=== PATIENT | female | born 1935 | race Caucasian/White ===

== ENCOUNTER → 2018-04-07 14:40 | Outpatient (CLI) | payer MEDICARE, SELFPAY ==
--- NOTE | 2018-04-07 | DI.ECHO.S_ITS ---
[facility] +---------+ : : [address] : [address] : : : : [id number] : : : : Phone: [phone] Echocardiogram Report + + :Name: DANILO SANTIAGO Study Date: 04/07/2018 Height: 67 in : :[facility] Weight: 150 lb : : Gender: Female BSA: 1.8 m2 : :: 1935 Age: 82 yrs BP: 148/52 mmHg: :Reason For Study: Congestive Heart Failure : : Performed By: Heydi Suárez : :Referring: SANTHOSH READ : + + Interpretation Summary 1) Normal left ventricular size, wall motion, and systolic function (EF about 55%). 2) Borderline RV enlargement with normal function. 3) There is mild to moderate aortic regurgitation. 4) Normal pulmonary artery pressures. 5) No prior Echo available for comparison. Procedure: A two-dimensional transthoracic echocardiogram with color flow and Doppler was performed. The study quality was technically adequate. There is no prior echocardiogram noted for this patient. The patient was in normal sinus rhythm during the exam. Left Ventricle: The left ventricle is normal in size. There is normal left ventricular wall thickness. Left ventricular ejection fraction is estimated to be 55 +/- 5%. Left ventricular systolic function is normal. There are no focal wall motion abnormalities. Diastolic parameters suggest a pseudonormalization pattern, consistent with probable elevated filling pressures. Right Ventricle: Borderline right ventricular enlargement. Right ventricular systolic function is borderline reduced. Atria: The left atrium is moderately dilated. Right atrial size is normal. The interatrial septum is intact with no evidence for an atrial septal defect. Mitral Valve: The mitral valve is grossly normal. There is no mitral regurgitation noted. Aortic Valve: The aortic valve is trileaflet. Leaflet mobility is moderately reduced. The aortic valve area is 2.2 centimeters squared by planimetry. There is mild to moderate aortic regurgitation. Tricuspid Valve: The tricuspid valve leaflets are thin and pliable. There is trace tricuspid regurgitation. The right ventricular systolic pressure is estimated to be at least 27 mmHg based on an estimated right atrial pressure of 3 mm Hg. Pulmonic Valve: The pulmonic valve is not well seen, but is grossly normal. There is trace pulmonic regurgitation. Great Vessels: The aortic root is mildly dilated. The ascending aorta is at the upper limits of normal in size. The aortic arch is at the upper limits of normal in size. The IVC is of normal diameter and collapses greater than 50% with a sniff. This suggests a low right atrial pressure of 3 mm Hg. Pericardium/ Pleura There is no pericardial effusion. There is no pleural effusion. MMode/2D Measurements & Calculations LVIDd: 5.4 cm Ao root diam: 3.8 cm LVIDs: 3.7 cm Aortic Jxn: 3.4 cm FS: 31.1 % asc Aorta Diam: 3.9 cm EPSS: 0.51 cm Ao Arch Diam (Prox Trans): 3.4 cm IVSd: 1.1 cm LVPWd: 0.73 cm LV field. diameter/BSA (cm/m^2): 3.0 LV sys. diameter/BSA (cm/m^2): 2.1 LA dimension: 4.1 cm RA long axis: 4.7 cm LA A2 area: 24.5 cm2 RA area: 17.7 cm2 LA A4 area: 22.1 cm2 RA vol: 56.5 ml LA length (vol): 5.1 cm RA : 31.6 ml/m2 LA vol: 89.7 ml IVC diam: 1.2 cm LA vol index: 50.1 ml/m2 RVDd major: 5.6 cm RVD1 (basal): 3.9 cm RVD2 (mid): 2.7 cm ARASH (plan): 2.2 cm2 Doppler Measurements & Calculations Ao V2 max: 171.1 cm/sec AI P1/2t: 531.7 msec Ao V2 mean: 119.1 cm/sec AI dec slope: 256.6 cm/sec2 Ao max P.7 mmHg Ao mean P.4 mmHg Ao V2 VTI: 33.7 cm MV E max christopher: 63.5 cm/sec TR max christopher: 246.5 cm/sec MV A max christopher: 96.0 cm/sec TR max P.3 mmHg MV E/A: 0.66 PA V2 max: 68.0 cm/sec Med Peak E' Christopher: 2.9 cm/sec PA V2 mean: 37.1 cm/sec E/E' med: 21.5 PA mean P.72 mmHg Lat Peak E' Christopher: 3.9 cm/sec PA Accel Time: 0.11 sec E/E' lat: 16.3 E/e' average: 18.9 MV dec time: 0.34 sec MV P1/2t: 98.3 msec MV P1/2t max christopher: 63.2 cm/sec MVA(2t): 2.2 cm2 Reading Physician:04:30 PM
== END ==
PROVIDERS: Visit Provider Internal Medicine Cardiovascular Disease
DX: I35.1 Nonrheumatic aortic (valve) insufficiency (principal); I50.22 Chronic systolic (congestive) heart failure
CPT/HCPCS: 93306

== ENCOUNTER → 2023-06-06 13:21 | Outpatient (CLI) | payer MEDICARE, SELFPAY ==
--- NOTE | 2023-06-06 | DI.ECHO.S_ITS ---
[place] [facility]---------+ [facility] : : [address] : [address] : : [id number] : : Phone: [phone] Echocardiogram Report + + :Name: DANILO SANTIAGO Study Date: 06/06/2023 Height: 68 in : :[facility] ReadingLocation: Weight: 165 lb : : Gender: Female BSA: 1.9 m2 : :: 1935 Age: 87 yrs BP: 128/73 mmHg: :Reason For Study: NONRHEUMATIC AORTIC VALVE INSUFFICIENCY : :Ordering Physician: NENA, : :SANTHOSH Performed By: Emir Tee : :Referring: SANTHOSH READ : + + Interpretation Summary 1) Normal left ventricular size, wall motion, and systolic function (EF 55- 60%). 2) Normal right ventricular size and function. 3) There is mild to moderate aortic regurgitation. 4) There is mild aortic stenosis (valve area 1.7cm2, mean gradient 14.5mmHg, severity ratio 0.73). 5) Compared to the Echo done 04/07/2018, mild aortic steonsis is present on this study. Procedure: A two-dimensional transthoracic echocardiogram with color flow and Doppler was performed. The study quality was technically adequate. Comparison is made with the echocardiogram of 04/07/2018. The heart rate ranged between 69-85 bpm during the study. Left Ventricle: The left ventricle is normal in size. Left ventricular wall thickness is borderline increased. The ejection fraction is estimated to be 55-60%. Left ventricular systolic function appears normal without focal wall motion abnormalities. Diastolic parameters suggest probable normal left ventricular diastolic function and normal filling pressures. Right Ventricle: The right ventricle is normal size. The right ventricular systolic function is normal. Atria: The left atrium is moderately dilated. Right atrial size is normal. The interatrial septum grossly appears intact with no obvious evidence for an atrial septal defect. Mitral Valve: The mitral valve is normal in structure and function. MAC. There is no mitral valve stenosis. There is mild mitral regurgitation. Aortic Valve: The aortic valve is trileaflet. The aortic valve is mildly calcified. There is mild aortic stenosis. The peak aortic velocity is 2.53 m/sec. The aortic valve mean gradient is 14.5 mmHg. There is mild to moderate aortic regurgitation. Tricuspid Valve: The tricuspid valve is normal. There is no tricuspid stenosis. No tricuspid regurgitation. Pulmonic Valve: The pulmonic valve is not well visualized. There is no pulmonic valvular stenosis. There is no pulmonic valvular regurgitation. Great Vessels: The aortic root is mildly dilated. The ascending aorta is mildly enlarged. The IVC is of normal diameter and collapses greater than 50% with a sniff. This suggests a low right atrial pressure of 3 mm Hg. Pericardium/ Pleura There is no pericardial effusion. There is no pleural effusion. MMode/2D Measurements & Calculations LVIDd: 4.8 cm LVOT diam: 1.9 cm LVIDs: 3.3 cm Ao root diam: 3.8 cm FS: 30.6 % asc Aorta Diam: 4.0 cm IVSd: 1.2 cm Ao Arch Diam (Prox Trans): 3.0 cm LVPWd: 1.1 cm LV ifeld. diameter/BSA (cm/m^2): 2.6 LV sys. diameter/BSA (cm/m^2): 1.8 LA A2 area: 24.0 cm2 RA long axis: 4.5 cm LA A4 area: 20.2 cm2 RA area: 11.6 cm2 LA length (vol): 5.5 cm RA vol: 25.2 ml LA vol: 74.6 ml RA : 13.4 ml/m2 LA vol index: 39.6 ml/m2 IVC diam: 1.3 cm RVD1 (basal): 3.1 cm RVD2 (mid): 2.8 cm TAPSE: 2.7 cm Doppler Measurements & Calculations Ao V2 max: 244.0 cm/sec LVOT Max Christopher: 124.0 cm/sec Ao V2 mean: 173.7 cm/sec LV V1 max P.2 mmHg Ao max P.8 mmHg LV V1 VTI: 29.6 cm Ao mean P.8 mmHg ARASH(I,D): 1.7 cm2 Ao V2 VTI: 46.6 cm ARASH(V,D): 1.4 cm2 sev ratio: 0.63 ARASH indexed to BSA (cm^2/m^2): 0.92 AI P1/2t: 480.8 msec AI dec slope: 248.2 cm/sec2 MV E max christopher: 63.9 cm/sec PA V2 max: 102.2 cm/sec MV A max christopher: 92.9 cm/sec PA V2 mean: 64.3 cm/sec MV E/A: 0.69 PA mean P.0 mmHg Med Peak E' Christopher: 5.3 cm/sec PA pr(Accel): 49.9 mmHg E/E' med: 12.1 Lat Peak E' Christopher: 7.6 cm/sec E/E' lat: 8.4 E/e' average: 10.2 MV dec time: 0.34 sec SV(OT): 80.9 ml Reading Physician:09:32 AM
== END ==
PROVIDERS: Referring Provider Internal Medicine Cardiovascular Disease; Visit Provider Internal Medicine Cardiovascular Disease
DX: I08.0 Rheumatic disorders of both mitral and aortic valves; I77.810 Thoracic aortic ectasia; I77.89 Other specified disorders of arteries and arterioles
CPT/HCPCS: 93306